=== PATIENT | male | born 1965 | race Caucasian/White ===

== ENCOUNTER 2025-03-03 08:17 | Inpatient (IN) | payer OTHER, SELFPAY ==
[2025-03-01 15:37] VITALS: BP 142/83
--- NOTE | 2025-03-01 17:58 | ED.GENMED ---
History of Present Illness
<Rex Darby PA-C - Last Filed: 03/02/25 00:13>
General
Chief Complaint: Dental Problem
Time Seen by Provider: 03/01/25 17:52
History of Present Illness
History of Present Illness:
59-year-old male with history of hbx-olytrld-qanhfhdze diabetes presents to the emergency department for evaluation of left jaw pain and swelling as well as trismus beginning today. He began with pain to this area of the mouth earlier in the month
and was started on clindamycin, last week he had a tooth extraction to tooth #18, awoke today with increasing pain and inability to open the mouth. No fevers, chills, sweats, nausea, or vomiting. Remains on clindamycin at this time.
Review of Systems
<Rex Darby PA-C - Last Filed: 03/02/25 00:13>
Review of Systems
Allergies reviewed?: Yes
All Other Systems: ROS reviewed and negative except as documented in HPI and ROS
Phy Exam
<Rex Darby PA-C - Last Filed: 03/02/25 00:13>
Physical Exam
Physical Exam:
GEN: Well appearing, NAD, WDWN
HEENT: Oral mucosa moist, no scleral icterus. Extraction site to left lower gumline without erythema or swelling, no obvious purulence. Substantial degree of trismus makes exam challenging. Moderate mandibular facial swelling with associated
adenopathy
Cardiac: Regular rate
Lung: No respiratory distress, no tachypnea
MSK: No gross deformity or injuries
Skin: Good color, no pallor or jaundice, no rashes
Neuro: AO x3, moves all extremities freely
Psych: Calm, cooperative
Course
<Rex Darby PA-C - Last Filed: 03/02/25 00:13>
Orders/Labs/Results
Orders:
Orders
03/01/25 17:59
CT Neck With Iv Contrast Urgent
Comment:
Reason For Exam: L mandibular dental infection
03/01/25 18:01
Ketorolac [Toradol] 15 mg IV NOW STA
03/01/25 18:10
Complete Blood Count/With Diff Urgent
Comprehensive Metabolic Panel Urgent
03/01/25 19:46
Oxycodone [Roxicodone] 5 mg PO NOW STA
03/01/25 21:55
Clindamycin 600 mg/50 ml [Cleocin] 600 mg in 50 ml IV NOW
03/01/25 22:19
Admit/Transfer Patient As Directed
Co-Sign Provider:
Level of Care: Observation services
Assign to:: Medical/Surgical
Physician / Group: Miky
Diagnosis: dental abscess
Code Status As Directed
Resuscitation Status: Full Code
PRN Pain Medication Management As Directed
May give lesser potent ordered pain med per pt: Yes
preference::
Protocol:: Medication orders for pain may be administered in a
manner that supports deferring to patient preference
when the pt is:
- Requesting an ordered lesser potent pain medication.
Least to most potent pain medications are defined
as: acetaminophen < NSAID < tramadol < opioids
(morphine, oxycodone, hydromorphone).
- Requesting a lesser dose of the same medication IF
ORDERED.
- Requesting a less intrusive route of administration
if both routes are prescribed by the provider (PO <
IV).
03/01/25 22:26
HYDROmorphone [Dilaudid] 0.5 mg IV NOW STA
Abnormal Lab Results
03/01/25
18:10
MCV 95.4 H fL
(80.0-94.0)
MCH 32.8 H pg
(27.0-31.0)
Absolute Neuts (auto) 7.7 H 10^3/uL
(1.4-6.5)
Absolute Monos (auto) 1.2 H 10^3/uL
(0.1-0.6)
Lymphocytes % 15.1 L %
(20.5-51.1)
Monocytes % 11.2 H %
(1.7-9.3)
BUN 28 H mg/dl
(9-20)
Alkaline Phosphatase 132 H U/L
(38-126)
03/01/25 18:10
03/01/25 18:10
Vital Signs
Initial and Last Documented VS:
Initial Vital Signs
Temp Pulse Resp BP Pulse Ox
97.8 F 92 18 142/83 98
03/01/25 15:37 03/01/25 15:37 03/01/25 15:37 03/01/25 15:37 03/01/25 15:37
Last Documented Vital Signs
Temp Pulse Resp BP Pulse Ox
97.8 F 88 20 145/86 99
03/01/25 15:37 03/01/25 20:00 03/01/25 20:00 03/01/25 20:00 03/01/25 20:00
<Lucas Dubon MD - Last Filed: 03/01/25 23:25>
Orders/Labs/Results
Orders:
Orders
03/01/25 17:59
CT Neck With Iv Contrast Urgent
Comment:
Reason For Exam: L mandibular dental infection
03/01/25 18:01
Ketorolac [Toradol] 15 mg IV NOW STA
03/01/25 18:10
Complete Blood Count/With Diff Urgent
Comprehensive Metabolic Panel Urgent
03/01/25 19:46
Oxycodone [Roxicodone] 5 mg PO NOW STA
03/01/25 21:55
Clindamycin 600 mg/50 ml [Cleocin] 600 mg in 50 ml IV NOW
03/01/25 22:19
Admit/Transfer Patient As Directed
Co-Sign Provider:
Level of Care: Observation services
Assign to:: Medical/Surgical
Physician / Group: Miky
Diagnosis: dental abscess
Code Status As Directed
Resuscitation Status: Full Code
PRN Pain Medication Management As Directed
May give lesser potent ordered pain med per pt: Yes
preference::
Protocol:: Medication orders for pain may be administered in a
manner that supports deferring to patient preference
when the pt is:
- Requesting an ordered lesser potent pain medication.
Least to most potent pain medications are defined
as: acetaminophen < NSAID < tramadol < opioids
(morphine, oxycodone, hydromorphone).
- Requesting a lesser dose of the same medication IF
ORDERED.
- Requesting a less intrusive route of administration
if both routes are prescribed by the provider (PO <
IV).
03/01/25 22:26
HYDROmorphone [Dilaudid] 0.5 mg IV NOW STA
Abnormal Lab Results
03/01/25
18:10
MCV 95.4 H fL
(80.0-94.0)
MCH 32.8 H pg
(27.0-31.0)
Absolute Neuts (auto) 7.7 H 10^3/uL
(1.4-6.5)
Absolute Monos (auto) 1.2 H 10^3/uL
(0.1-0.6)
Lymphocytes % 15.1 L %
(20.5-51.1)
Monocytes % 11.2 H %
(1.7-9.3)
BUN 28 H mg/dl
(9-20)
Alkaline Phosphatase 132 H U/L
(38-126)
03/01/25 18:10
03/01/25 18:10
Vital Signs
Initial and Last Documented VS:
Initial Vital Signs
Temp Pulse Resp BP Pulse Ox
97.8 F 92 18 142/83 98
03/01/25 15:37 03/01/25 15:37 03/01/25 15:37 03/01/25 15:37 03/01/25 15:37
Last Documented Vital Signs
Temp Pulse Resp BP Pulse Ox
97.8 F 88 20 145/86 99
03/01/25 15:37 03/01/25 20:00 03/01/25 20:00 03/01/25 20:00 03/01/25 20:00
<Rex Darby PA-C - Last Filed: 03/02/25 00:13>
MDM/Problems Addressed
MDM/Problems Addressed:
Imaging reveals a suspicious fluid collection concerning for abscess near the left mandible. Images were reviewed with oral maxillofacial surgery on-call who recommends patient be admitted for IV antibiotics and operative intervention in the morning
<Rex Darby PA-C - Last Filed: 03/02/25 00:13>
*Pulse Oximetry
SaO2: 98
Oxygen Mode of Delivery: Room air
Patient hypoxic: no
*Critical Care Note
Total Time (30-74mins, 75-104mins- exclusive of procedures): Not Applicable
ED Attending Note
<Rex Darby PA-C - Last Filed: 03/02/25 00:13>
-
Portions of this chart may have been created with voice recognition software.� Occasional wrong word or��sound alike� substitutions may have occurred due to the inherent limitations of voice recognition software.
<Lucas Dubon MD - Last Filed: 03/01/25 23:25>
ED Attending Note
Patient seen and examined by attending physician: Yes
ED Attending Note:
Patient status post tooth extraction last week, presents to ED secondary to worsening left jaw pain with swelling, causing difficulty when eating or swallowing. Denies fever or chills. Denies nausea or vomiting. Denies headache. Denies new
trauma.
Physical Exam
General: mild painful distress, not acutely ill. afebrile
Head: nc/at. eomi
Neck: supple. no meningeal signs. normal posterior pharynx. diffuse tenderness to palpation over left jaw/face, with mild erythema. no lymphadenopathy noted.
Heart: s1/s2 regular rate and rhythm
Lungs: no acute respiratory distress. clear bilaterally
Abdomen: normal bowel sounds. not tender.
Neuro: alert and oriented x 3. no focal neurological deficits
Skin: no rash
Psychiatric: well kept. interactive and cooperative
Extremities: no edema.
History, exam, and CT neck consistent with what appears to be development of dental abscess. As such, patient will be admitted for further evaluation and treatment, including potential I&D.
Discharge Plan
Departure
Patient Disposition: Admit
Date of Disposition: 03/01/25
Time of Disposition: 21:41
Admit to: Med/Surg
Presentation/result/management discussed w/ accepting MD/DO: Hospitalist
Discharge Problem:
Dental abscess
Interventions
Interventions:
*Risk Screen - Suicide Last Done: 03/01/25 15:37
*General Assessment Last Done: 03/01/25 20:00
*Neglect/Abuse Screening Last Done: 03/01/25 20:00
[2025-03-01] MEDS: TORADOL 15 MG IV (18:17)
[2025-03-01 18:20] LABS: Hematocrit 49.5 % (39.0-52.0); Hemoglobin 17.0 g/dL (13.0-18.0); Mean Corp Hgb Conc. 34.3 g/dL (33.0-37.0); Mean Corpuscular Volume 95.4 fL (80.0-94.0); Nucleated Red Blood Cells % 0 % (-); Platelet Count 227 10^3/uL (130-400); Red Cell Dist. Width 12.9 % (11.5-14.5)
[2025-03-01 19:14] LABS: ALT (SGPT) 20 U/L (0-50); AST (SGOT) 27 U/L (17-59); Albumin 5.0 g/dl (3.5-5.0); Alkaline Phosphatase 132 U/L (38-126); Blood Urea Nitrogen 28 mg/dl (9-20); Calcium 10.2 mg/dl (8.4-10.2); Carbon Dioxide 24 mmol/L (22-30); Chloride 99 mmol/L (98-107); Glucose 91 mg/dl (70-99); Potassium 4.3 mmol/L (3.5-5.1); Sodium 138 mmol/L (135-145); Total Protein 7.9 g/dl (6.3-8.2); eGFR > 60.00
[2025-03-01] MEDS: ROXICODONE 5 MG PO (19:58)
[2025-03-01 20:00] VITALS: BP 145/86
[2025-03-01 21:03] VITALS: BMI 28.7
--- NOTE | 2025-03-01 22:05 | HPS.HSE ---
Family Physician
-
Family Physician: Morgan Kidd
Chief Complaint
-
Oral pain
History of Present Illness
He is a 59-year-old with past medical history significant for zrd-efulkig-ntviosjty diabetes presenting to the emergency department with left jaw pain and swelling as well as trismus today.
He reports that he has had about 1 month area of tooth and mild pain. He said he had a tooth extraction 1 week ago and was started on clindamycin at that time. He awoke today with increasing pain in the ability to open his mouth. He denies having
any fevers or chills. He denies any sore throat. He denies any nausea or vomiting.
He has been consistent with taking his clindamycin. Denies any headache.
In the emergency department he was afebrile, blood pressure of 145/86 with a pulse of 88 and was satting 98% on room air. He had a white count of 10.6 hemoglobin 17 a peak of 2.7. Electrolytes BUN and creatinine were all normal.
CT facial shows some peripheral enhancement along the medial margin of the left mandible measuring 1.7 x 1.6 x 2.0 cm which is suspicious for a dental abscess
Medical History
Past Medical History
Past Medical History: Reports NIDDM
Past Surgical History: Reports None
Social History
Tobacco: Non-smoker
Alcohol: None
Drug: None
Family History
Family History: Not pertinent
Allergies / Home Medications
Allergies reflects when Allergies were last updated in [employer].
Home Medications with original date entered in [employer]
Allergy/Medication List:
Allergies
Allergy/AdvReac Type Severity Reaction Status Date / Time
Penicillins Allergy Unknown Verified 03/01/25 15:37
Review of Systems
-
Constitutional: Reports No Symptoms
EENT: Reports Mouth Pain
Respiratory: Reports No Symptoms
Cardiac: Reports No Symptoms
Abdomen/GI: Reports No Symptoms
: Reports No Symptoms
Musculoskeletal: Reports No Symptoms
Skin: Reports No Symptoms
Neurological: Reports No Symptoms
Endocrine: Reports No Symptoms
Hematologic/Lymphatic: Reports No Symptoms
Psych: Reports No Symptoms
Physical Exam
Vital Signs
Vital Signs
Temp Pulse Resp BP Pulse Ox
97.8 F 88 20 145/86 99
03/01/25 15:37 03/01/25 20:00 03/01/25 20:00 03/01/25 20:00 03/01/25 20:00
Physical Exam
General: Well Developed, Well Nourished and No Apparent Distress
HEENT: NormoCephalic, Moist mucous membranes and Atraumatic
Respiratory: Clear
Cardiac: S1/S2 and Regular Rhythm; No Murmur or Rub
GI: Soft, Non Tender, Non Distended and Normal Bowel Sounds; No Organomegaly
Rectal: Deferred by Provider
Musculoskeletal: No Clubbing, No Cyanosis and No Edema
Skin: No Rash
Neuro: Nonfocal/grossly intact
Laboratory Results
-
03/01/25 18:10
03/01/25 18:10
Laboratory Results
Total Bilirubin 0.8 mg/dl (0.2-1.3) 03/01/25 18:10
AST 27 U/L (17-59) 03/01/25 18:10
ALT 20 U/L (0-50) 03/01/25 18:10
Alkaline Phosphatase 132 U/L (38-126) H 03/01/25 18:10
Data Reviewed
-
CT Scan: Report Reviewed by me
Lab Data: Labs Reviewed by me
Old Records: Reviewed
Impression/Plan
-
IMPRESSION:
49-year-old who is status post tooth extraction about 1 week ago presenting to the emergency department with oral pain and found to have a 2 cm left mandibular dental abscess.
PLAN:
Dental abscess-failure of outpatient antibiotics
- Admit to [facility]
- N.p.o. after midnight
- for empiric coverage of dental abscess requiring hospitalization, will treat with IV ceftriaxone 2g daily + flagyl 500 q8.
-pcn allergy as an .
-Blood cultures if spikes fever
-OMFS consulted, patient to OR in a.m. for I&D
-Pain control with IV Toradol for now, no indication for IV steroids
DVT prophylaxis�Lovenox subcu
CODE STATUS�full code
[2025-03-01] MEDS: CLEOCIN 50 IV (22:21)
[2025-03-01] MEDS: DILAUDID 0.5 MG IV (22:34)
[2025-03-02] VITALS (11 sets, daily range): BP systolic 98–143; BP diastolic 57–79; BMI 29.4
--- NOTE | 2025-03-02 01:34 | PTCARENOTE ---
Pt arrived onto floor @0134. Pt AAOx3 and able to walk into room without assistance. Pt with no complaints of SOB at this time. Pt oriented to room and call garcia; will continue to monitor
[2025-03-02] MEDS: DILAUDID 0.5 MG IV ×2 (01:40→19:23)
[2025-03-02] MEDS: FLAGYL 500 MG 100 IV ×2 (01:56→09:09)
[2025-03-02] MEDS: LR 1000 IV ×2 (01:56→11:13)
[2025-03-02] MEDS: FLUSH (NSS) 1 FLUSH IV (01:57)
[2025-03-02] MEDS: STERILE WATER FOR INJECTION 20 ML IV (01:57)
[2025-03-02] MEDS: ROCEPHIN 2000 MG IV (01:57)
[2025-03-02 02:01] LABS: Glucose - Point of Care 80 mg/dl (70-99)
[2025-03-02] MEDS: TORADOL 15 MG IV (04:43)
[2025-03-02 06:13] LABS: Glucose - Point of Care 83 mg/dl (70-99)
[2025-03-02 07:35] LABS: Hematocrit 47.7 % (39.0-52.0); Hemoglobin 16.8 g/dL (13.0-18.0); Mean Corp Hgb Conc. 35.2 g/dL (33.0-37.0); Mean Corpuscular Volume 93.9 fL (80.0-94.0); Platelet Count 186 10^3/uL (130-400); Red Cell Dist. Width 12.8 % (11.5-14.5)
--- NOTE | 2025-03-02 08:11 | CON.ORS ---
Consultation - Oral Surgery
Subjective
59M with PMH NIDDM who presented to the ED yesterday due to left jaw pain and trismus. He was having pain from tooth #18 which was extracted as an outpatient by Dr. Fritz on 02/25. He was started on Clindamycin at that time. Since then he has developed
worsening pain and trismus. He saw Dr. Fritz yesterday as an outpatient and was instructed to present to the ED due to severe trismus. He denies systemic symptoms.
Past Medical History
Past Medical History: NIDDM
Past Surgical History: None
Family History: Not Pertinent
Alcohol: None
Drug: None
Tobacco: Non-smoker
Medications / Allergies
Allergies
Allergy/AdvReac Type Severity Reaction Status Date / Time
Penicillins Allergy Unknown Verified 03/01/25 15:37
Active Medications
Generic Name Dose Route Start Last Admin
Trade Name Freq PRN Reason Stop Dose Admin
Acetaminophen 650 mg 03/02/25 01:32
Acetaminophen 325 Mg Tablet PO 03/30/25 01:31
Q4HPRN PRN
mild pain/HERRERA/temp> 100.4F
Atorvastatin Calcium 10 mg 03/02/25 22:00
Atorvastatin (Lipitor) 10 Mg Tablet PO 03/30/25 21:59
HS MICHELLE
Bisacodyl 10 mg 03/02/25 01:32
Bisacodyl 10 Mg Rectal Suppository RECTAL 03/30/25 01:31
[id number] PRN
constipation
Ceftriaxone Sodium 2,000 mg 03/02/25 02:00 03/02/25 01:57
Ceftriaxone 2,000 Mg/20 Ml Vial IV 2,000 mg
Q24H MICHELLE Administration
Dapagliflozin 10 mg 03/02/25 08:00
Dapagliflozin (Farxiga) 10 Mg Tablet PO 03/30/25 07:59
On Hold: 03/02/25 08:00 DAILY MICHELLE
Resume: 03/02/25 17:00
Enoxaparin Sodium 40 mg 03/02/25 18:00
Enoxaparin Sodium 40 Mg/0.4 Ml Syringe SC 03/30/25 17:59
QPM MICHELLE
Hydromorphone HCl 0.5 mg 03/02/25 01:32 03/02/25 01:40
Hydromorphone 0.5 Mg/0.5 Ml Syringe IV 03/16/25 01:31 0.5 mg
Q4HPRN PRN Administration
severe pain
Lactated Ringer's 1,000 mls @ 100 mls/hr 03/02/25 01:32 03/02/25 01:56
Lr IV 1,000 mls
.Q10H MICHELLE Administration
Metronidazole 100 mls @ 100 mls/hr 03/02/25 02:00 03/02/25 01:56
Flagyl 500 Mg IV 100 mls
Q8H MICHELLE Administration
Ketorolac Tromethamine 15 mg 03/02/25 01:32 03/02/25 04:43
Ketorolac 15 Mg/Ml Injection IV 03/07/25 01:31 15 mg
Q6HPRN PRN Administration
moderate pain
Losartan Potassium 50 mg 03/02/25 08:00
Losartan 50 Mg Tablet PO 03/30/25 07:59
DAILY MICHELLE
Metformin HCl 500 mg 03/02/25 08:00
Metformin 500 Mg Regular Release Tablet PO 03/30/25 07:59
On Hold: 03/02/25 08:00 BID MICHELLE
Resume: 03/02/25 17:00
Polyethylene Glycol 17 grams 03/02/25 01:32
Polyethylene Glycol Powder 17 Grams Packet PO 03/30/25 01:31
DAILYPRN PRN
constipation
Senna/Docusate Sodium 1 tablet 03/02/25 01:32
Docusate W/Senna (Alis-Colace) Tablet PO 03/30/25 01:31
BIDPRN PRN
constipation
Sodium Chloride 0 flush 03/02/25 02:00
Sodium Chloride 0.9% (Flush) Syringe IV 03/30/25 01:59
PER PROTOCOL MICHELLE
Sodium Chloride 0 flush 03/02/25 02:00 03/02/25 01:57
0.9% Nacl Flush If Lactated Ringers Ivf Ordered IV 03/30/25 01:59 1 flush
Q24H MICHELLE Administration
Sterile Water 20 ml 03/02/25 02:00 03/02/25 01:57
Sterile Water For Injection 20 Ml Vial IV 03/30/25 01:59 20 ml
Q24H MICHELLE Administration
Review of Systems
Constitutional: Reports No Symptoms
Eyes: Reports No Symptoms
ENT: Reports Other (Left jaw pain, trismus)
Cardiovascular: Reports No Symptoms
Respiratory: Reports No Symptoms
Gastrointestinal: Reports No Symptoms
Vital Signs
Temp Pulse Resp BP Pulse Ox
36.5 C 78 20 143/79 97
03/02/25 01:34 03/02/25 01:34 03/02/25 01:34 03/02/25 01:34 03/02/25 01:34
Physical Exam
General: Awake, Alert, Oriented x 3 and Not in Acute Distress
Extra-oral Exam: Other (Mild swelling under the left mandibular angle and tenderness to palpation of the area, no overlying erythema. Trismus to ~5mm)
Lesions Seen Intraorally on: Other (Intraoral exam significantly limited due to trismus, unable to palpate FOM or medial mandible. No vestibular fluctuance. Extraction site #18 w/o purulent drainage)
CT Results
Region of low-attenuation with some peripheral enhancement along the medial margin of the left mandible measuring 1.7 x 1.6 x 2.0 cm. This would be suspicious for a dental abscess given the clinical indication
Assessment / Plan
59M with PMH NIDDM with a left pterygomandibular abscess. Based on physical and radiographic examination, I have recommended I&D today. We have discussed all risks, benefits, complications and alternatives including but not limited to bleeding,
pain, persistent infection, swelling, temporary or permanent damage to inferior alveolar or facial nerves, or need for additional procedure.
- Continue antibiotics
- NPO for OR today
Data Reviewed
CT Scan: Image personally visualized and interpreted and Report Reviewed by me
Labs: Labs Reviewed by me
[2025-03-02] MEDS: COZAAR 50 MG PO (08:43)
[2025-03-02 10:01] LABS: Blood Urea Nitrogen 21 mg/dl (9-20); Calcium 9.9 mg/dl (8.4-10.2); Carbon Dioxide 25 mmol/L (22-30); Chloride 103 mmol/L (98-107); Estimated Creatinine Clearance 94 ml/min; Glucose 90 mg/dl (70-99); Potassium 4.3 mmol/L (3.5-5.1); Sodium 141 mmol/L (135-145); eGFR > 60.00
[2025-03-02 11:33] LABS: Glucose - Point of Care 83 mg/dl (70-99)
--- NOTE | 2025-03-02 13:56 | W.PN.HOSP.TC ---
Today's Communication/Plan
-
OR today
Continue with current antibiotic
Assessment / Plan
Assessment / Plan
49-year-old who is status post tooth extraction about 1 week ago presenting to the emergency department with oral pain and found to have a 2 cm left mandibular dental abscess.
PLAN:
Dental abscess-failure of outpatient antibiotics
- Appreciate OMFS input - OR today for I&D of dental abscess
- CT neck noted
- for empiric coverage of dental abscess requiring hospitalization, will treat with IV ceftriaxone 2g daily + flagyl 500 q8.
-pcn allergy as an infant.
-Blood cultures if spikes fever
-Pain control with IV Toradol for now, no indication for IV steroids
DVT prophylaxis�Lovenox subcu
CODE STATUS�full code
Anticipated Discharge: 24 - 48 hours
Subjective/Interval History
-
Date of Service: March 02, 2025
Persistent pain in the left lower jaw.
No fever or chills.
Objective Data
-
Labs:
Laboratory Results
03/02/25 03/02/25
06:32 09:11
WBC 8.9
Hgb 16.8
Hct 47.7
Plt Count 186
Sodium Cancelled 141
Potassium Cancelled 4.3
Chloride Cancelled 103
Carbon Dioxide Cancelled 25
BUN Cancelled 21 H
Creatinine Cancelled 0.9
Glucose Cancelled 90
Calcium Cancelled 9.9
Vital Signs:
Vital Signs
Temp Pulse Resp BP Pulse Ox
98.2 F 82 18 121/74 98
03/02/25 07:25 03/02/25 08:43 03/02/25 07:25 03/02/25 08:43 03/02/25 07:25
I&O
03/01/25 03/02/25 03/03/25
06:59 06:59 06:59
Intake Total 500 / 500 100 / 100
Balance 500 / 500 100 / 100
Physical Exam
-
General: Comfortable
HEENT: Other (Tenderness over the left lateral lower jaw area with mild swelling)
Respiratory: Non Labored Respirations; Negative Accessory Resp Muscle Use
Cardiac: Regular Rhythm and S1/S2
Neuro: AO x 3
Data Reviewed
-
Labs: Labs Reviewed by me
--- NOTE | 2025-03-02 14:40 | CM ---
child nutrition manager reviewed patient's chart and met with patient and spouse at bedside, OBS reviewed and signed, paint lives with spouse in a 2 story home, patient is independent with adl's and ambulation, no dme, home when stable.
PCP: Dr Morgan Kidd
Pharmacy: [facility] in [place]
Plan; Home when stable.
[2025-03-02] MEDS: FLAGYL 500 MG IV (16:34)
--- NOTE | 2025-03-02 17:09 | OR.RPT ---
Operative Report
Operative Report
Primary Surgeon:� Tamie Barrett
Assisting Surgeon:� Pam Smyth
Pre-op Diagnosis:� Left mandibular abscess
Post-op Diagnosis: � Left mandibular abscess
Anesthesia Type:� General
Procedure Performed:� Incision and drainage of left mandibular abscess
The patient was prepped and draped in standard sterile fashion with betadine on the skin. 3.4 cc 2% lidocaine with 1:100,000 epinephrine injected as EFRAIN, lingual, buccal blocks. A throat pack was placed. Peridex rinse used intraorally. A 2cm left
submandibular incision was created through the skin and subcutaneous tissue 2cm below the inferior border of the mandible. A hemostat was then used to bluntly dissect to the inferior border of the mandible, passing along the medial and lateral
aspects of the left mandible at site #18 and up the ramus medially. Small amount of purulence expressed. Cultures were taken. #15 blade used to make a sulcular incision around tooth #19, extending crestally along site #18 with a distobuccal release.
A periosteal elevator was used to bluntly dissect buccally and lingually along the mandible. A oni drain was placed through the submandibular incision along the medial aspect of mandible, passing intraorally. 3-0 chromic gut tacking suture was
placed intraorally. The drain was secured extraorally with 3-0 silk suture. Site thoroughly irrigated with NSS. At the end of the case, the oral cavity was inspected and irrigated and found to be free of foreign debris. The throat pack was removed
and care of the patient was returned to the Department of Anesthesia. The patient was successfully extubated and transferred to the Post-Anesthesia Care Unit.
Specimen / Cultures:�Left mandibular abscess
Estimated Blood Loss:� 5 cc
Complications:� None
[2025-03-02 17:20] LABS: Glucose - Point of Care 88 mg/dl (70-99)
--- NOTE | 2025-03-02 17:58 | PTCARENOTE ---
Patient returned from OR, clear liquid diet ordered. Dressing to left lower mandible clean dry intact. Family at bedside .
[2025-03-02] MEDS: LOVENOX 40 MG SC (18:05)
[2025-03-02] MEDS: LIPITOR 10 MG PO (19:23)
[2025-03-02 21:17] LABS: Glucose - Point of Care 164 mg/dl (70-99)
[2025-03-03] MEDS: LR 1000 IV ×2 (00:51→08:43)
[2025-03-03] MEDS: FLUSH (NSS) 1 FLUSH IV (00:51)
[2025-03-03] MEDS: STERILE WATER FOR INJECTION 20 ML IV (00:57)
[2025-03-03] MEDS: FLAGYL 500 MG 100 IV ×3 (00:58→17:32)
[2025-03-03] MEDS: ROCEPHIN 2000 MG IV (00:58)
[2025-03-03 03:00] VITALS: BP 105/64
--- NOTE | 2025-03-03 03:45 | DOWNTIME ---
There was a [email or web address] Client Farrowing Manager Downtime on 03/03/2025 from 0100 to 03/03/2025 at 0215. Downtime documentation of patient's care, including medication administrations, has been reconciled in the electronic record per guidelines. Refer to the
patient's paper chart under the miscellaneous tab to see printed paper medication records and downtime forms.
[2025-03-03 07:50] VITALS: BP 109/65
[2025-03-03 07:56] LABS: Glucose - Point of Care 86 mg/dl (70-99)
--- NOTE | 2025-03-03 08:18 | W.PN.OMFS ---
Today's Communication
-
- Continue antibiotics
- Peridex rinses BID
- Continue normal oral hygiene
- Advance diet as tolerated
- Ok for discharge after drain removed
Assessment / Plan
-
59M 1 day s/p I&D of left submandibular abscess progressing according to a normal post-operative course. Plan to follow drain output for removal, will evaluate later today
Subjective Data
-
59M 1 day s/p I&D of left submandibular abscess. He is doing well and pain is controlled. He has been tolerating liquid diet. He denies numbness in the lip, chin, and tongue.
Objective Data
-
Vitals, I&O and Lab Results:
Vital Signs
Temp Pulse Resp BP Pulse Ox
36.6 C 80 16 109/65 98
03/03/25 07:50 03/03/25 07:50 03/03/25 07:50 03/03/25 07:50 03/03/25 07:50
Intake and Output
03/02/25 03/03/25 03/04/25
06:59 06:59 06:59
Intake Total 500 / 500 1250 / 1250
Balance 500 / 500 1250 / 1250
Intake:
IV fluids (Total) 500 / 500 1150 / 1150
normosol 50 / 50
IV piggybacks 100 / 100
Other:
Number of approximated MODERATE 1 2
amounts of urine
Number of approximated LARGE 1
amounts of urine
Lab Data
03/02/25 06:32
03/02/25 09:11
Plt Count 186 10^3/uL (130-400) 03/02/25 06:32
Microbiology
03/02/25 16:30 Wound Culture - Pending
Mandible Gram Stain - Preliminary
03/02/25 16:30 Anaerobic Culture - Pending
Mandible
Physical Exam
-
E/O: Mild swelling surrounding submandibular incision, not indurated. [place] drain in place. No purulence draining, some serosanguinous drainage. V3 03/26, facial nerve intact. DAR 20 mm, 30mm with assistance
I/O: Mild left vestibular swelling c/w surgery, FOM soft, oni drain in place, no purulence draining
[2025-03-03] MEDS: COZAAR 50 MG PO (08:42)
--- NOTE | 2025-03-03 10:41 | W.PN.HOSP.TC ---
Today's Communication/Plan
-
cw current abx
Follow OR cx data
Assessment / Plan
Assessment / Plan
49-year-old who is status post tooth extraction about 1 week ago presenting to the emergency department with oral pain and found to have a 2 cm left mandibular dental abscess.
PLAN:
Dental abscess-failure of outpatient antibiotics
- s/p left submandibular abscess I&D 03/03
- CT neck noted
- for empiric coverage of dental abscess requiring hospitalization, will treat with IV ceftriaxone 2g daily + flagyl 500 q8. Follow OR cx data
-pcn allergy as an .
-Blood cultures if spikes fever
-Pain control with IV Toradol for now, no indication for IV steroids
DVT prophylaxis�Lovenox subcu
CODE STATUS�full code
Anticipated Discharge: 24 - 48 hours
Subjective/Interval History
-
Date of Service: March 03, 2025
Status post I&D of the left submandibular abscess. Less painful. Not requiring IV pain medication.
No fever or chills.
Tolerating soft diet.
No nausea vomiting.
Objective Data
-
Vital Signs:
Vital Signs
Temp Pulse Resp BP Pulse Ox
97.9 F 80 16 109/65 98
03/03/25 07:50 03/03/25 07:50 03/03/25 07:50 03/03/25 07:50 03/03/25 07:50
I&O
03/02/25 03/03/25 03/04/25
06:59 06:59 06:59
Intake Total 500 / 500 1250 / 1250
Balance 500 / 500 1250 / 1250
Physical Exam
-
General: Comfortable
HEENT: Other (Neck in dressing)
Respiratory: Non Labored Respirations; Negative Accessory Resp Muscle Use
Cardiac: Regular Rhythm and S1/S2; Negative Tachycardic
GI: Soft
Neuro: AO x 3
Data Reviewed
-
Labs: Labs Reviewed by me (pending cx data)
--- NOTE | 2025-03-03 11:43 | CM ---
Patient switched to inpatient patient made aware, home with spouse no needs when stable.
Plan; Home with spouse no needs when stable.
[2025-03-03 11:55] LABS: Glucose - Point of Care 83 mg/dl (70-99)
--- NOTE | 2025-03-03 15:30 | W.PN.OMFS ---
Today's Communication
-
- Continue antibiotics
- Peridex rinses BID
- Continue normal oral hygiene
- Advance diet as tolerated
-Jaw stretching exercises reviewed with patient
- Ok for discharge, will follow-up with me next week
Assessment / Plan
-
59M 1 day s/p I&D of left submandibular abscess progressing according to a normal post-operative course. Drain pulled. He is ok for discharge from surgical standpoint
Subjective Data
-
59M 1 day s/p I&D of left submandibular abscess. He is doing well and pain is controlled. He has been tolerating liquid diet.
Objective Data
-
Vitals, I&O and Lab Results:
Vital Signs
Temp Pulse Resp BP Pulse Ox
36.6 C 80 16 109/65 98
03/03/25 07:50 03/03/25 07:50 03/03/25 07:50 03/03/25 07:50 03/03/25 07:50
Intake and Output
03/02/25 03/03/25 03/04/25
06:59 06:59 06:59
Intake Total 500 / 500 1250 / 1250
Balance 500 / 500 1250 / 1250
Intake:
IV fluids (Total) 500 / 500 1150 / 1150
normosol 50 / 50
IV piggybacks 100 / 100
Other:
Number of approximated MODERATE 1 2
amounts of urine
Number of approximated LARGE 1
amounts of urine
Lab Data
03/02/25 06:32
03/02/25 09:11
Plt Count 186 10^3/uL (130-400) 03/02/25 06:32
Microbiology
03/02/25 16:30 Anaerobic Culture - Preliminary
Mandible Culture pending. Anaerobic cultures are examined after 3
days incubation. Additional information to follow.
03/02/25 16:30 Wound Culture - Preliminary
Mandible Gram Stain - Preliminary
Physical Exam
-
E/O: Mild swelling surrounding submandibular incision, not indurated. Oni drain in place. No drian output. V3 03/26, facial nerve intact. DAR 20 mm, 30mm with assistance
I/O: Mild left vestibular swelling c/w surgery, FOM soft, oni drain in place, no purulence draining
[2025-03-03 15:44] VITALS: BP 116/64
[2025-03-03] MEDS: LOVENOX SC ×2 (17:32→17:44)
[2025-03-03 18:14] LABS: Glucose - Point of Care 84 mg/dl (70-99)
[2025-03-03] MEDS: TUMS CHEWABLE TABLET 400 MG PO (19:46)
[2025-03-03] MEDS: LIPITOR 10 MG PO (19:47)
[2025-03-03 20:55] LABS: Glucose - Point of Care 86 mg/dl (70-99)
[2025-03-03 23:30] VITALS: BP 99/59
[2025-03-04] MEDS: FLAGYL 500 MG 100 IV ×2 (00:59→10:09)
[2025-03-04] MEDS: STERILE WATER FOR INJECTION 20 ML IV (00:59)
[2025-03-04] MEDS: ROCEPHIN 2000 MG IV (00:59)
[2025-03-04] MEDS: FLUSH (NSS) 1 FLUSH IV (01:00)
[2025-03-04 07:57] LABS: Glucose - Point of Care 101 mg/dl (70-99)
[2025-03-04 08:04] VITALS: BP 111/70
--- NOTE | 2025-03-04 08:18 | W.PN.OMFS ---
Today's Communication
-
- Continue antibiotics
- Peridex rinses BID
- Continue normal oral hygiene
- Advance diet as tolerated
-Jaw stretching exercises reviewed with patient
-Ok for discharge, will follow-up with me Saturday
Assessment / Plan
-
59M 2 days s/p I&D of left submandibular abscess progressing according to a normal post-operative course. He is ok for discharge from surgical standpoint
Subjective Data
-
59M 2 days s/p I&D of left submandibular abscess. He is doing well and pain is controlled. He has been tolerating pureed diet.
Objective Data
-
Vitals, I&O and Lab Results:
Vital Signs
Temp Pulse Resp BP Pulse Ox
36.7 C 78 16 111/70 97
03/04/25 08:04 03/04/25 08:04 03/04/25 08:04 03/04/25 08:04 03/04/25 08:04
Intake and Output
03/03/25 03/04/25 03/05/25
06:59 06:59 06:59
Intake Total 1250 / 1250 1410 / 1410
Balance 1250 / 1250 1410 / 1410
Intake:
Oral fluids 1410 / 1410
IV fluids (Total) 1150 / 1150
normosol 50 / 50
IV piggybacks 100 / 100
Other:
How many times incontinent 2
MODERATE amount urine
Number of approximated MODERATE 2
amounts of urine
Number of approximated LARGE 1
amounts of urine
Lab Data
03/02/25 06:32
03/02/25 09:11
Plt Count 186 10^3/uL (130-400) 03/02/25 06:32
Microbiology
03/02/25 16:30 Anaerobic Culture - Preliminary
Mandible Culture pending. Anaerobic cultures are examined after 3
days incubation. Additional information to follow.
03/02/25 16:30 Wound Culture - Preliminary
Mandible Gram Stain - Preliminary
Physical Exam
-
E/O: Minimal swelling surrounding submandibular incision, not indurated. V3 10/10, facial nerve intact. DAR 25 mm, 30 mm with assistance
I/O: Mild left vestibular swelling c/w surgery, FOM soft, no purulence
[2025-03-04] MEDS: COZAAR 50 MG PO (08:29)
--- NOTE | 2025-03-04 12:32 | CM ---
Home no needs.
Plan; Home no needs.
--- NOTE | 2025-03-04 13:43 | W.DCSUMMARY ---
Discharge Summary
Discharge Data
Date of Admission: 03/03/25
Date of Discharge: 03/04/25
-
Pending Results: Yes (OR cultures)
Hospital Course
Primary diagnosis:
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
Secondary diagnosis:
Primary hypertension
Diabetes mellitus type 2
Hospital course:
Patient had a recent tooth extraction and subsequently had oral pain and left jaw swelling and found to have left submandibular dental abscess. Was seen by oral maxillofacial surgery and had dental abscess drained with good improvement. He had
failed outpatient clindamycin. OR cultures were still pending but with clinical improvement he was discharged on cefdinir and Flagyl. He was on IV ceftriaxone and Flagyl during the hospital stay. He will follow-up with oral maxillofacial surgery
next Saturday.
Today patient is eager to go home. Feels improved with regards to swelling and no pain today in his left jaw. Tolerating diet. Improved induration clinically. Nontoxic. Afebrile.
Medically stable for discharge home today.
Consultants on board:
Oral surgery-Tamie Neri
Discharge Plan
-
Patient Disposition: Home (Routine Discharge)
Discharge Diagnosis/Procedures: Left submandibular abscess-odontogenic in origin
Diet: Regular
Activity: As tolerated
Driving Restrictions: As prior to admission
Bathing Restrictions: None
Activity Restrictions/Additional Instructions:
Culture of the abscess are pending - call our office tomorrow
Referrals:
Morgan Kidd DO [Family Provider, Family Practice]
Tamie Barrett DDS [Active, Oral Surgery] - 03/09/25 2:00 pm
Referral Note: Your appointment is scheduled in my [place] office at [address]
Prescriptions:
New
acetaminophen 325 mg Tablet
650 mg PO Q4HPRN PRN (Reason: mild pain/HERRERA/temp> 100.4F) Qty: 1 0RF
cefdinir 300 mg capsule
300 mg PO BID Qty: 14 0RF
metronidazole 500 mg tablet
500 mg PO TID Qty: 21 0RF
ibuprofen 400 mg tablet
400 mg PO Q8H PRN (Reason: Pain) Qty: 30 0RF
Continued
losartan 50 mg Tablet
50 mg PO DAILY
metformin 500 mg Tablet
500 mg PO BID
atorvastatin 10 mg Tablet
10 mg PO HS
Jardiance 25 mg Tablet
25 mg PO DAILY
Discharge Orders:
Discharge Patient (As Directed); Ordered 03/04/25
Ordered By: Yusef Werner
Discharge Date and Time
Print Language: BOLIVIAN
== END 2025-03-04 15:32 | disposition home or self-care (01) | DRG 159 ==
LOC: 4 WEST ACU 08:17
PROVIDERS: Physician Assistant; ADMITTING PHYSICIAN Internal Medicine; ATTENDING PHYSICIAN Internal Medicine; CONSULT PHYSICIAN Dentist Oral and Maxillofacial Surgery; EMERGENCY PHYSICIAN Emergency Medicine; FAMILY PHYSICIAN Family Medicine
PROC: 0J9100Z Drainage of Face Subcutaneous Tissue and Fascia with Drainage Device, Open Approach (ICD-10-PCS; 2025-03-02)
DX: K12.2 Cellulitis and abscess of mouth (principal); I10 Essential (primary) hypertension; E11.9 Type 2 diabetes mellitus without complications; Z79.84 Long term (current) use of oral hypoglycemic drugs; Z88.0 Allergy status to penicillin
CPT/HCPCS: 70491; 80048; 80053; 82962; 85025; 85027; 87070; 87075; 87205; 96374; 99285; Q9967